=== PATIENT | male | born 1970 ===

== ENCOUNTER 2018-07-03 18:01 | Inpatient (IN) | payer OTHER ==
[2018-07-03] MEDS ORDERED: NS 1,000 ML IV ONE (18:21)
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
[2018-07-03 18:31] LABS: PLATELET COUNT 263 10^3/uL (150-400)
[2018-07-03 18:44] LABS: INR 1.89 (0.83-1.16); PROTIME(PATIENT) 21.8 SEC (12.0-15.0)
[2018-07-03] MEDS ORDERED: LACTULOSE 20 GM/30 ML UDCUP PO ONE (19:17)
[2018-07-03] MEDS ORDERED: SODIUM Cl 3% 100 ML IV SCH (19:30)
[2018-07-03] MEDS ORDERED: PROMETHAZINE HCL 25 MG/ML INJ IVP PRN (20:23)
[2018-07-03] MEDS ORDERED: ONDANSETRON 4 MG/2 ML VIAL IVP PRN (20:23)
[2018-07-03] MEDS ORDERED: oxyCODONE IR 5 MG TAB PO PRN (20:23)
[2018-07-03] MEDS ORDERED: HYDROmorphONE/DILAUDID 1 MG/ML INJ IVP PRN (20:23)
[2018-07-03] MEDS ORDERED: ACETAMINOPHEN 325 MG TAB PO PRN (20:23)
[2018-07-03] MEDS ORDERED: ONDANSETRON DISINTEGRATING 4 MG TAB PO PRN (20:23)
[2018-07-03] MEDS ORDERED: HYDROCODONE/APAP 5/325 TAB PO PRN (20:23)
[2018-07-03] MEDS ORDERED: NOREPINEPHRINE BITARTRATE 4 MG in NS 500 ML IV ONE (20:51)
[2018-07-03] MEDS ORDERED: NS 1,000 ML IV SCH (21:00)
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
[2018-07-03] MEDS: LACTULOSE 20 GM/30 ML UDCUP PO SCH (23:25)
[2018-07-03] MEDS: HEPARIN 5,000 UNIT/0.5 ML INJ SC SCH (23:25)
[2018-07-03] MEDS: VASOPRESSIN 25 UNIT in NS 250 ML IV SCH (23:30)
[2018-07-03] MEDS ORDERED: NOREPINEPHRINE BITARTRATE 16 MG in NS 250 ML IV SCH (23:45)
[2018-07-03] MEDS ORDERED: SODIUM Cl 3% 500 ML IV SCH (23:45)
[2018-07-03] MEDS: SODIUM Cl 3% 100 ML IV ONE (23:59)
[2018-07-04] MEDS ORDERED: SODIUM Cl 3% 100 ML IV SCH (00:11)
[2018-07-04] MEDS: SODIUM Cl 3% 100 ML IV ONE (00:42)
[2018-07-04] MEDS ORDERED: SODIUM Cl 3% 100 ML IV ONE (01:00)
[2018-07-04] MEDS ORDERED: D50W 25 GM/50 ML SYR IVP PRN (06:09)
[2018-07-04] MEDS ORDERED: HYDROCORTISONE 100 MG/2 ML VIAL IVP SCH (06:15)
[2018-07-04 06:18] LABS: INR 2.17 (0.83-1.16); PROTIME(PATIENT) 24.2 SEC (12.0-15.0)
[2018-07-04 06:41] LABS: PLATELET COUNT 195 10^3/uL (150-400)
[2018-07-04] MEDS: HEPARIN 5,000 UNIT/0.5 ML INJ SC SCH (07:05)
--- NOTE | 2018-07-04 07:58 | PDMN ---
Medical Necessity Medical necessity: MCG: [id number] renal failure- , GRG systemic condition: pt presents with AMS, hyponatremia ( 116), elevated LFT JAVI Cr( 5.8) , sepsis with shock, anemia H/H dropping, PMH unknown due to AMS, anticipate > 2 MN ongoing med nec care, further monitoring, eval and tx
[2018-07-04] MEDS: PANTOPRAZOLE SODIUM 40 MG VIAL IVP SCH ×2 (08:08→21:03)
[2018-07-04] MEDS: HYDROCORTISONE 100 MG/2 ML VIAL IVP SCH ×2 (08:08→21:03)
[2018-07-04] MEDS: LACTULOSE 20 GM/30 ML UDCUP PO SCH (08:21)
[2018-07-04] MEDS: VASOPRESSIN 25 UNIT in NS 250 ML IV SCH (09:15)
[2018-07-04] MEDS ORDERED: D5W IV ONE (09:23)
[2018-07-04] MEDS ORDERED: FOMEPIZOLE IV ONE (09:23)
[2018-07-04] MEDS ORDERED: LACTULOSE 200 GM in SODIUM CL IRRIG SOLUTION 700 ML PR SCH ×2 (09:30→12:00)
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
--- NOTE | 2018-07-04 10:00 | HOSPPROG ---
Hospitalist Progress Note Assessment/Plan: Shock - suspect 2/2 fulminant hepatic failure, though sepsis also possible and would consider intra-abdominal source most likely -Cont Levophed, Vasopressin -Cont Ceftriaxone -Cont Hydrocortisone -BCx's, UCx pending -defer paracentesis for now given his coagulopathy and soft, non-tender abdomen Hyponatremia - renal following, discussed with Dr. Bright -prn 3% NS -q3h Na Alcoholic liver disease with ascites - suspect acute decompensation in setting of chronic dz. DF 69. INR on the rise, Albumin decreasing suggesting poor synthetic function. MELD 42, rendering him very high risk for mortality. -IV Methylprednisolone -send acetaminophen level, hepatitis panel, anti-smooth muscle Ab, SKY (to ensure no other etiology for liver failure) -GI consult planned -trial Albumin -cont IVF's, supportive care JAVI - suspect HRS, no emergent dialysis needs -renal considering CRRT -Albumin as above along with Levophed in effort to improve renal perfusion -add octreotide per GI recs Anemia - unclear if he has had recent bleeding, noting blood on mouth upon arrival, he is oozing per RN, but no overt bleeding -1 u prbc's this am for hgb 6.9 -hemoccult stool -trend Coagulopathy 2/2 ESLD - INR rising, rectal bleeding noted with attempt to give rectal lactulose -2 units FFP now Metabolic encephalopathy - suspect hepatic encephalopathy +/- infection -change to rectal lactulose as unable to take po (bled with attempt at rectal administration) -will attempt to place ng tube after FFP given and given lactulose via tube -add Xifaxin per tube Non-clearing lactate - likely 2/2 hepatic dz -trend DVT PPLX - hold heparin with oozing and low hgb, SCD's Full code - will readdress code status with his parents when they arrive Dispo - cont ICU, 60 min crit care. Discussed with Dr. Lwo and Dr. Bright. Discussed pt's critical condition and poor prognosis with pt's mom and dad via phone, additional 20 minutes. Subjective: Pt is unable to tell me his name or where is from. He speaks in full sentences, but not relevant to conversation. Very confused. Unable to answer questions appropriately or provide helpful history. No fevers. No N/V. No melena or BRBPR reported by RN. Objective: Vital Signs Temp Pulse Resp BP Pulse Ox 37.3 C 109 H 29 H 106/38 L 94 07/04/18 07:00 07/04/18 09:00 07/04/18 09:00 07/04/18 09:00 07/04/18 09:00 Laboratory Results 07/04/18 05:47 07/04/18 08:45 07/03/18 07/04/18 07/05/18 05:59 05:59 05:59 Intake Total 850 Output Total 35 Balance 815 PT 24.2 SEC (12.0-15.0) H 07/04/18 05:47 INR 2.17 (0.83-1.16) H 07/04/18 05:47 - Physical Exam Constitutional: chronically ill appearing Eyes: icteric sclera Ears, Nose, Mouth, Throat: dry mucous membranes Cardiovascular: tachycardia Respiratory: no respiratory distress, clear to auscultation Gastrointestinal: other (soft, mod distention, non-tender, no peritoneal signs) Skin: warm Musculoskeletal: full muscle strength Psychiatric: encephalopathic ICD10 Worksheet Patient Problems: Problems Problem Status Onset Acute hepatitis Acute Altered mental status Acute Cirrhosis Acute Hyponatremia Acute Renal failure Acute
[2018-07-04] MEDS: ALBUMIN 25% 100 ML IV SCH ×3 (10:23→22:15)
[2018-07-04 10:38] LABS: CREATINE KINASE 100 IU/L (0-224)
--- NOTE | 2018-07-04 12:41 | ECHO ---
[email or web address] [address] [address] Main: [phone] Fax: Transthoracic Echocardiogram Name: CORBY LOPEZ MR#: [id number] Study Date: 07/04/2018 Study Time: 11:16 AM Date of : 1970 Age: 48 year(s) Height: ( ) Weight: 113.4 kg (250 lb.) BSA: Gender: Male Examination: Echo Indication: Cardiogenic shock Image Quality: Adequate Contrast: Requested by: Estefania Chauhan BP: / Heart Rate: Rhythm: Indication: Cardiogenic shock Procedure Staff Transcript Clerk: Shannan Pa [facility] Reading Physician: Mary Ann Zhou MD Requesting Provider: Conclusions: Normal size left ventricle. Borderline concentric LV hypertrophy. Global hypercontractility of the left ventricle. The ejection fraction is estimated to be 70-75 %. No regional wall motion abnormality. Normal diastolic LV function. Normal size right ventricle. Normal RV function. The left atrium is mildly dilated. There is no previous echocardiogram for comparison. Measurements: Chambers Valvular Assessment AV/MV Valvular Assessment TV/PV Normal Normal Normal Name Value Range Name Value Range Name Value Range Ao Kanika (2D): 3.0 cm (1.4 cm-2.6 AV Vmax: 3.17 m/s (1 m/s-1.7 PV Vmax: 1.79 m/s (0.6 m/s-0.9 cm) m/s) m/s) IVSd (2D): 1.1 cm (0.6 cm-1.1 AV maxP mmHg ( - ) PV PGmax: 13 mmHg ( - ) cm) AV meanP mmHg ( - ) LVDd (2D): 5.6 cm (4.2 cm-5.9 ELIUD (VTI): 2.0 cm ( - ) cm) MV E Vmax: 1.59 m/s ( - ) LVDs (2D): 3.1 cm (2.1 cm-4 MV A Vmax: 1.22 m/s ( - ) cm) MV E/A: 1.30 ( - ) LVPWd (2D): 1.1 cm (0.6 cm-1 cm) MV PHT: 0.051 s ( - ) LVOTd 2.0 cm 2.0 cm mm MVA (PHT): 4.3 s ( - ) EF Range: 70-75 % RVDd(2D): 4.3 cm (1.9 cm-3.8 cmmm) Patient: CORBY LOPEZ Study Date: 07/04/2018 Page 1 of 2 11:16 AM Continued Measurements: Chambers Valvular Assessment AV/MV Name Value Name Value LADs: 4.1 cm MV DecTime: 173 m/s LADs Lon.8 cm MV E' Septal: 0.14 m/s LA Area: 22.6 cm2 MV E/E' Septal: 11.60 LA Volume: 82 ml MV E/E' Lateral: 12.10 RA Area: 19.5 cm2 Additional Vessels Name Value Ao Ascendin.1 cm Findings: Left Ventricle: Normal size left ventricle. Borderline concentric LV hypertrophy. Global hypercontractility of the left ventricle. The ejection fraction is estimated to be 70-75 %. No regional wall motion abnormality. Normal diastolic LV function. Right Ventricle: Normal size right ventricle. Normal RV function. Left Atrium: The left atrium is mildly dilated. Right Atrium: The right atrium is mildly dilated. Mitral Valve: The mitral valve is normal in appearance and function. No mitral stenosis is present. Trivial mitral valve regurgitation. Aortic Valve: The aortic valve is tri-leaflet. There is no significant aortic valve regurgitation. The aortic valve velocities appear elevated due to hypercontractility of LV. Tricuspid Valve: The tricuspid valve is normal in appearance and function. Trivial tricuspid valve regurgitation. Pulmonic Valve: The pulmonic valve is normal in appearance and function. Trivial pulmonic valve regurgitation. Aorta: The aorta is normal. Normal size aortic root measuring 3.0 cm. Normal size ascending aorta measuring 3.1 cm. Pericardium: No pericardial effusion. No pleural effusion. Exam Comments: (No Signature Object) Patient: CROBY LOPEZ Study Date: 07/04/2018 Page 2 of 2 11:16 AM [id number]
[2018-07-04] MEDS ORDERED: BENZOCAINE UNIT DOSE SPRAY HURRICAINE MM ONE (12:57)
--- NOTE | 2018-07-04 13:08 | GCON ---
CRITICAL CARE CONSULTATION. DATE OF CONSULTATION: 07/04/2018 HISTORY OF PRESENT ILLNESS: This patient is a 48-year-old male whose medical history is largely unkn own, though highly suspicious for alcohol. He was found [place] [address] [place] [address], with me ntal status changes and jaundice and was brought to the emergency department. He was found to be hyp otensive in the ER and had a host of metabolic abnormalities, not the least of which was a sodium of 116, and a creatinine of 5.8. His LFTs were also elevated as was an ammonia level and INR. Because of his hypotension, a central line was placed, and he was placed on Levophed and vasopressin. His ur ine output was quite low, Salazar was placed, and he has made next to no urine, but has been managed cl osely with the renal service. Little is known about his history. Only conjecture at this point is t hat he was visiting somebody in the area and other details are currently unknown. REVIEW OF SYSTEMS: Otherwise negative. PAST MEDICAL HISTORY: Unknown. PAST SURGICAL HISTORY: Unknown. SOCIAL HISTORY: He said that he was a "good drinker," but the quantities are uncertain. Uncertain am ount of smoking or recreational drug habits. FAMILY HISTORY: Unknown. MEDICATIONS: Outpatient medications unknown. PHYSICAL EXAM: VITAL SIGNS: He was afebrile the entire time during admission. At the time my evalu ation, his blood pressure was 108/40, heart rate of 107, sinus tachycardia, respiratory rate 25, oxyg en saturation 94% on 4 L. GENERAL APPEARANCE: He was a large obese male, who was tachypneic, but no obvious distress. He was mumbling nonsensical words and not exactly responding to questions, and wh o was markedly jaundiced. HEENT: His pupils were equally round and reactive to light, but icteric. Mucous membranes were moist without erythema or exudate. NECK: Supple, without adenopathy or jugul ar vein distention. He had a right IJ central line. LUNGS: Breath sounds were diminished, but blanca r to auscultation bilaterally without wheezes, rubs, rales. HEART: Regular rate and rhythm without obvious murmur. ABDOMEN: Soft, nontender. There probably was a fluid wave, but no guarding, no buffy ound. EXTREMITIES: Showed a trace edema bilaterally. NEUROLOGIC: Exam was notable for some asteri xis. Obvious mental status changes, but no cranial nerve defects. Objective data includes a head CT, which showed motion artifact, but no obvious abnormalities. A mariann st x-ray was hypoventilatory, but no obvious abnormalities. His white count is 27.6. Hematocrit on arrival was 26.4, down to 19.5 today without obvious bleeding. Platelets of 195. INR of 2.17. His sodium on arrival was 116, now 119, with a potassium 4.2, chloride 85, bicarb 17, BUN 56, creatinine 6.4, which has been rising. Glucose of 114. Total bilirubin was 20.4, which is reduced from admissi on at 25. AST of 203, also reduced from admission. ALT of 93, alkaline phosphatase of 179. These a re all better since admission. His albumin on arrival was 3.3, down to 2.3 now. Urinalysis showed p rotein, bilirubin, with a urine sodium of 9, a urine osmolality of 285, serum osmolality of 275. Tox screen was only positive for marijuana. Alcohol level was negative. ASSESSMENT AND PLAN: 1. Probable hepatic encephalopathy. He has had some trouble with epistaxis and reports of blood zee und his mouth, and was not able to get any lactulose as of yet. We attempted to place a rectal tube, but the nurses told me they were unable to get lactulose enema instilled. Subsequently, we will try to give him some FFP and place a nasogastric tube in hopes of giving lactulose and improving this pr oblem. I am certain that his mental status is also affected by his hypotension as well as his hypona tremia. Renal is helping with the hyponatremia, and he is fluid restricted and is unable to get diur etics at this time. He may need 3% saline, but his sodium is coming up slowly. 2. Hypoxemia. This is really atelectasis. He seems to be protecting his airway okay and has minima l oxygen requirements. I do not feel that intubation is required at this time. 3. Hypotension. This is presumably due to his liver disease. He does have an elevated white count. His belly is quite soft. My suspicion for spontaneous bacterial peritonitis is low. He has been s tarted on ceftriaxone anyway, and it may be from vasodilatation. I would target a systolic blood pre ssure of greater than 90 and titrate his Levophed, which has already been accomplished to a large deg ree. My suspicion for an acute coronary syndrome is quite low and adrenal insufficiency is always po ssible, though this does seem unlikely. However, we may consider testing. 4. What looks to be alcoholic hepatitis based on his numbers. His discriminant function would suppo rt the use of steroids. I think that because of his blood pressure issues that steroids would have a dditional benefit from that perspective, and we should probably give this to him and monitor his func tion. His INR is rising with a decrease in his LFTs, which is somewhat problematic, but we will have to continue to follow that closely. 5. Acute kidney injury. This is more than likely hepatorenal syndrome of which dialysis is really o f any benefit. I did discuss this with Nephrology in some detail, and we will monitor his labs and c onsider dialysis anyway since it is uncertain as to the underlying etiology. 6. Anemia. I suspect this is a dilutional problem since there is no obvious bleeding, but it is angie d to know. He is going to get FFP. He is getting 2 units of packed red cells and will continue to f ollow his hematocrit closely. We will get a GI consult involved not only for the liver issues, but c onsideration of a scope should there be bright red blood from above. 7. Osmolar gap. His osmolar gap is about 10, and so coupled with a mildly elevated anion gap, I do not feel that ethylene glycol or methanol poisoning is likely and would not give . A total of about 60 minutes of critical care time was required for this patient. /[id number]/MODL
[2018-07-04] MEDS: LACTULOSE 20 GM/30 ML UDCUP TUBE SCH ×2 (14:48→21:02)
[2018-07-04] MEDS ORDERED: D5W IV SCH (15:00)
[2018-07-04] MEDS ORDERED: METHYLPREDNISOLONE SOD SUCC IV SCH (15:00)
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
[2018-07-04] MEDS: RIFAXIMIN 550 MG TAB PO SCH ×2 (15:19→21:03)
[2018-07-04] MEDS: OCTREOTIDE ACETATE 500 MCG in NS 50 ML IV SCH (15:29)
[2018-07-04] MEDS: methylPREDNISolone SOD SUCC 40 MG/ML VIAL IVP SCH (15:35)
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
[2018-07-05] MEDS: OCTREOTIDE ACETATE 500 MCG in NS 50 ML IV SCH ×2 (00:09→08:58)
[2018-07-05] MEDS ORDERED: BIOTENE DRY MOUTH ORAL RINSE 237 ML BTL MM PRN (03:33)
[2018-07-05] MEDS ORDERED: ORAL BALANCE GEL TUBE PO PRN (03:57)
[2018-07-05] MEDS: ALBUMIN 25% 100 ML IV SCH ×2 (04:15→10:49)
[2018-07-05 05:37] LABS: PLATELET COUNT 135 10^3/uL (150-400)
[2018-07-05 05:38] LABS: INR 2.2 (0.83-1.16); PROTIME(PATIENT) 24.5 SEC (12.0-15.0)
[2018-07-05] MEDS: PANTOPRAZOLE SODIUM 40 MG VIAL IVP SCH (08:05)
--- NOTE | 2018-07-05 08:27 | HOSPPROG ---
Hospitalist Progress Note Assessment/Plan: Shock - suspect 2/2 fulminant hepatic failure, though sepsis also possible and would consider intra-abdominal source most likely -Cont Levophed, Vasopressin -Cont Ceftriaxone -Change hydrocortisone to stress dose solumedrol for alcoholic hepatitis component -BCx's, UCx ngtd -defer paracentesis for now given his coagulopathy and soft, non-tender abdomen AHRF - O2 requirement from 2 LPM --> 6 LPM with increased WOB this am -stat CXR pers reviewed/interp - c/w ARDS, diffuse edema -discussed intubation with rn house supervisor and parents, not likely to save his life and could be harmful (risk of bleeding), changed to DNR per parents wishes Hyponatremia - renal following, discussed with Dr. Bright -prn 3% NS -q3h Na Alcoholic liver disease with ascites - suspect acute decompensation in setting of chronic dz. DF 69. INR on the rise, Albumin decreasing suggesting poor synthetic function. MELD 42, rendering him very high risk for mortality. Acetaminophen level neg. -IV Methylprednisolone -hepatitis panel, anti-smooth muscle Ab, SKY pending though suspect this is all due to etoh -GI consult appreciated -cont Albumin JAVI - almost certainly HRS, no emergent dialysis needs -renal following, considering CRRT, though he is not a candidate for dialysis -Albumin as above along with Octreotide and Levophed in effort to improve renal perfusion Anemia - unclear if he has had recent bleeding, no e/o active bleeding here -2 u prbc's this am for hgb 6.1 -hemoccult stool -trend h&h Coagulopathy 2/2 ESLD - INR rising, rectal bleeding noted with attempt to give rectal lactulose -s/p 2 u FFP, repeat FFP today Metabolic encephalopathy - suspect hepatic encephalopathy +/- infection, bled with attempt at rectal lactulose -lactulose per ng tube -cont Xifaxin per tube Non-clearing lactate - likely 2/2 hepatic dz -trend DVT PPLX - holding heparin with oozing and low hgb, SCD's Code status - DNR. I discussed with parents code would likely be futile. They believe he would not want CPR and intubation and agree with DNR/DNI Dispo - cont ICU, 60 min crit care. Discussed with Dr. Low. He remains critically ill. Advised his parents he has high risk for mortality in next 24- 48 hrs. Father to arrive late tonight. Subjective: Pt remains encephalopathic, unable to interact or answer questions. Non-sensical speech. Respiratory distress. No fevers. Objective: Vital Signs Temp Pulse Resp BP Pulse Ox 37.2 C 101 H 33 H 112/49 L 91 L 07/05/18 08:00 07/05/18 08:00 07/05/18 08:00 07/05/18 08:00 07/05/18 08:00 Laboratory Results 07/05/18 05:15 07/05/18 05:15 07/04/18 07/05/18 07/06/18 05:59 05:59 05:59 Intake Total 850 1448 473 Output Total 35 200 22 Balance 815 1248 451 PT 24.5 SEC (12.0-15.0) H 07/05/18 05:15 INR 2.20 (0.83-1.16) H 07/05/18 05:15 - Physical Exam Constitutional: chronically ill appearing Eyes: icteric sclera Ears, Nose, Mouth, Throat: dry mucous membranes Cardiovascular: regular rate and rhythym Respiratory: no respiratory distress, reduced air movement, inspiratory crackles Gastrointestinal: soft, non-tender abdomen, distension Skin: other (jaundice) Musculoskeletal: generalized weakness Psychiatric: encephalopathic ICD10 Worksheet Patient Problems: Problems Problem Status Onset Acute hepatitis Acute Altered mental status Acute Cirrhosis Acute Hyponatremia Acute Renal failure Acute
[2018-07-05] MEDS: HYDROCORTISONE 100 MG/2 ML VIAL IVP SCH (08:59)
[2018-07-05] MEDS ORDERED: RIFAXIMIN 550 MG TAB TUBE SCH (09:00)
[2018-07-05] MEDS: methylPREDNISolone SOD SUCC 40 MG/ML VIAL IVP SCH (09:01)
[2018-07-05] MEDS: LACTULOSE 20 GM/30 ML UDCUP TUBE SCH (09:03)
--- NOTE | 2018-07-05 09:55 | SOAPPROG ---
SOAP Progress Note Assessment/Plan: Assessment: 1. Acute alcoholic hepatitis 2. Cirrhosis with severe liver dysfunction 3. ARF 4. Hypotension 5. Altered mental status- likely hepatic encephalopathy 6. Acidosis 7. Anemia 8. Coagulopathy 9. Hyponatremia Plan: 1. Overall prognosis is very guarded. Agree with DNR. 2. Continue steroid for ETOH hepatitis only if there is no active infection. Unclear if the current thinking is for sepsis and ARDS but I would favor stopping this therapy given the general picture (sepsis, ARDS and severe anemia) . 3. Use of stress does hydrocortisone is fine but will not benefit alcoholic liver disease. 4. Family meeting today to discuss care plan 5. Continue other therapies for now (lactulose, xifaxan, albumin, ceftriaxone, and pressors). 6. Transfuse 2 units PRBCs for anemia 7. Vit K 10mg IV once 07/05/18 09:58 Subjective: CC: confused and agitated. Unable to purposefully communicate. Objective: Vital Signs Temp Pulse Resp BP Pulse Ox 37.2 C 99 24 H 107/50 L 100 07/05/18 08:00 07/05/18 09:00 07/05/18 09:00 07/05/18 09:00 07/05/18 09:00 Laboratory Results 07/05/18 05:15 07/05/18 05:15 07/04/18 07/05/18 07/06/18 05:59 05:59 05:59 Intake Total 850 1448 583 Output Total 35 200 22 Balance 815 1248 561 PT 24.5 SEC (12.0-15.0) H 07/05/18 05:15 INR 2.20 (0.83-1.16) H 07/05/18 05:15 Physical Exam - Physical Exam General Appearance: moderate distress, obese EENT: scleral icterus (R), scleral icterus (L) Neck: other (Right jugular central line) Respiratory: respiratory distress, decreased breath sounds, rhonchi, wheezing Cardiac/Chest: tachycardia, systolic murmur Abdomen: soft, No distended, No guarding, No rebound, No ascites Skin: jaundice, pallor Extremities: No swelling Neuro/Psych: disoriented to person, disoriented to place, disoriented to time ICD10 Worksheet Patient Problems: Problems Problem Status Onset Acute hepatitis Acute Altered mental status Acute Cirrhosis Acute Hyponatremia Acute Renal failure Acute
--- NOTE | 2018-07-05 10:32 | SOAPPROG ---
SOAP Progress Note Assessment/Plan: Assessment/Plan: JAVI: unknown baseline, now oliguric JAVI with low urine sodium, very concerning for hepatorenal syndrome. - No plans for dialysis given his overall prognosis, have reviewed GI note, he is also DNR/DNI now. - Will continue albumin, octreotide and midodrine. - Avoid hypotension and nephrotoxins. - Will continue to monitor closely. Hyponatremai: hypervolemic hyponatremia in setting of cirrhosis, Na now up from 116 on presentation to 123, which is an appopriate rise in that time. - Pt is NPO, so fluid and sodium restricted. - Unable to diurese given JAVI. - Will continue to monitor while getting albumin. - If sodium worsens, would need to consider additional 3% bolus, 100ml at a time. Acidosis: metabolic acidosis in setting of lactic acidosis as well as JAVI, pH ok yesterday. Shock: pt of Levophed today, adding midodrine as above. Anemia: Hgb again 6.1 today, being transfused PRBCs. Subjective: No acute events overnight. Pt now off Levophed but BP soft. Respiratory status worse, made DNR/DNI today. He remains oliguric, disoriented and unable to answer questions. Objective: Vital Signs Temp Pulse Resp BP Pulse Ox 37.2 C 98 30 H 111/67 95 07/05/18 08:00 07/05/18 10:00 07/05/18 10:00 07/05/18 10:00 07/05/18 10:00 Laboratory Results 07/05/18 05:15 07/05/18 05:15 07/04/18 07/05/18 07/06/18 05:59 05:59 05:59 Intake Total 850 1448 583 Output Total 35 200 22 Balance 815 1248 561 PT 24.5 SEC (12.0-15.0) H 07/05/18 05:15 INR 2.20 (0.83-1.16) H 07/05/18 05:15 General: mild distress Eyes: sclerae icteric CV: RRR Resp: labored respirations on oxymask Abd: soft, distended Ext: +1 edema BLE Neuro: +asterixis Skin: Jaundiced ICD10 Worksheet Patient Problems: Problems Problem Status Onset Acute hepatitis Acute Altered mental status Acute Cirrhosis Acute Hyponatremia Acute Renal failure Acute
[2018-07-05 11:11] VITALS: BP 118/69
[2018-07-05] MEDS ORDERED: MIDODRINE HCL 5 MG TAB PO SCH (12:00)
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
[2018-07-05] MEDS ORDERED: OCTREOTIDE 100 MCG/1 ML INJ SC SCH (16:00)
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
[2018-07-05] MEDS ORDERED: methylPREDNISolone SOD SUCC 40 MG/ML VIAL IVP SCH (21:00)
[2018-07-06 03:10] LABS: HEPATITIS A ANTIBODY IGM (BCH) NEGATIVE (NEGATIVE); HEPATITIS B CORE AB IGM NEGATIVE (NEGATIVE); HEPATITIS B SURFACE ANTIGEN NEGATIVE (NEGATIVE); HEPATITIS C ANTIBODY TOTAL NEGATIVE (NEGATIVE)
[2018-07-06] MEDS ORDERED: HYDROCORTISONE 100 MG/2 ML VIAL IV SCH (09:00)
== END 2018-07-05 14:50 | disposition expired | DRG 441 ==
LOC: OBSVTOIN 19:20 → F2N 21:34
PROVIDERS: ADMIT Internal Medicine; ATTEND Hospitalist
PROC: 3E033XZ Introduction of Vasopressor into Peripheral Vein, Percutaneous Approach (ICD-10-PCS; principal; 2018-07-03)
PROC: 02HV33Z Insertion of Infusion Device into Superior Vena Cava, Percutaneous Approach (ICD-10-PCS; principal; 2018-07-03)
PROC: 30233K1 Transfusion of Nonautologous Frozen Plasma into Peripheral Vein, Percutaneous Approach (ICD-10-PCS; 2018-07-04)
PROC: 30233N1 Transfusion of Nonautologous Red Blood Cells into Peripheral Vein, Percutaneous Approach (ICD-10-PCS; 2018-07-04)
PROC: 3E0G7GC Introduction of Other Therapeutic Substance into Upper GI, Via Natural or Artificial Opening (ICD-10-PCS; 2018-07-04)
DX: K76.7 Hepatorenal syndrome (principal); K70.40 Alcoholic hepatic failure without coma; F05 Delirium due to known physiological condition; K76.6 Portal hypertension; K70.11 Alcoholic hepatitis with ascites; K70.31 Alcoholic cirrhosis of liver with ascites; R57.9 Shock, unspecified; J80 Acute respiratory distress syndrome; E87.2 Acidosis; D68.4 Acquired coagulation factor deficiency; D64.89 Other specified anemias; F10.188 Alcohol abuse with other alcohol-induced disorder; Z66 Do not resuscitate; Z51.5 Encounter for palliative care
CPT/HCPCS: 80305; 86255-90; 96374; G0472; G0480; J0696; J1451; J1644; J1720; J2354; J2920; P9016; P9017; P9047